=== PATIENT | female | born 1935 | race Caucasian/White ===

== ENCOUNTER 2017-04-23 03:13 | Emergency (ER) | payer MEDICARE, SELFPAY ==
[~2017-04-23] VITALS: Ht 160 cm; Wt 72.1 kg
[~2017-04-23 03:13] MED LIST: ALBIPROI; ALBU90OI; ALBU90OI INH; ALBU90OI6 INH; ALBU90OI61 INH; AZIT250 PO; BUSP10 PO; CARBLEV25 PO; CIPR500; CIPR500 PO; CYCL10 PO; Citrate Of Mag300 ML PO; DEXA2; DEXA4; DIAZ5; DIAZ5 PO; DOCU100; DOCU100 PO; ESOM20; ESOM20 PO; FENT25TP TOP; FENT50TP; FLUD.1; FLUD.1 PO; FLUSAL2505; Fludrocortison0.1 MG PO; GABA100 PO; GLYCAS PR; Golytely Solu4000 ML PO; HYDACE10B PO; HYDACE5 PO; HYDACE5325; HYDR1TAB94 PO; LEVSOD25 PO; LEVSOD75 PO; METO10 PO; METO5A; Miralax17 GM PO; NITR100CA PO; Norco 5-325 Ta1 EACH PO; OXYC10ER; OXYC20ER; OXYC5 PO; OXYGEN; OXYGEN USE; Omeprazole20 M1 PO; PRAM.5 PO; PROC5 PO; Percocet 5-3251 EACH PO; RANI150; RANI150 PO; RISE5 PO; ROPI1 PO; SODBIC650; SPIRIVA; TIOT18; TIOT18 PO; Tamiflu75 MG PO; Zofran8 MG PO; [UNRECOGNIZED DRUG - OTHER]; [UNRECOGNIZED DRUG - REMARK]; [UNRECOGNIZED DRUG - REMARK] PO
[2017-04-23] MEDS ORDERED: Gas-X125 M1 PO (03:42)
[2017-04-23 03:44] LABS: BASOPHILS ABSOLUTE AUTO 0.02 K/mm3 (0.00-0.23); BASOPHILS PERCENT AUTO 0 % (0-2); EOSINOPHILS PERCENT AUTO 2 % (0-6); Hematocrit 38.3 % (33.0-51.0); Hemoglobin 12.7 g/dL (11.5-16.0); IMMATURE GRAN ABSOLUTE AUTO 0.04 K/mm3 (0.00-0.10); IMMATURE GRAN PERCENT AUTO 1 % (0-1); LYMPHOCYTES ABSOLUTE AUTO 0.83 K/mm3 (0.84-5.20); LYMPHOCYTES PERCENT AUTO 18 % (21-46); MONOCYTES ABSOLUTE AUTO 0.55 K/mm3 (0.16-1.47); MONOCYTES PERCENT AUTO 12 % (4-13); Mean Corpuscular HGB 30.7 pg (26.0-34.0); Mean Corpuscular HGB Conc 33.2 g/dL (31.5-36.5); Mean Corpuscular Volume 93 fL (80-100); Mean Platelet Volume 9.3 fL (9.1-12.4); NEUTROPHILS ABSOLUTE AUTO 2.99 K/mm3 (1.96-9.15); NEUTROPHILS PERCENT AUTO 66 % (41-73); Platelet Count 268 K/mm3 (150-400); RDW Coefficient Variation 13.6 % (11.7-14.2); RDW Standard Deviation 46.4 fL (35.1-46.3); Red Blood Cell Count 4.14 M/mm3 (3.80-5.20); White Blood Cell Count 4.53 K/mm3 (4.00-11.30)
[2017-04-23] MEDS ORDERED: PROBIOTIC1 EAC1 PO (03:44)
[2017-04-23 04:05] LABS: Troponin I <0.015 ng/mL (0.000-0.040)
[2017-04-23 04:10] LABS: Alanine Aminotransfer (ALT/SGP 14 U/L (12-78); Albumin, Blood 3.2 g/dL (3.4-5.0); Albumin/Globulin Ratio 0.7 (0.8-1.8); Alk Phos 75 U/L (50-136); Anion Gap 7 mmol/L (6-16); Aspartate Aminotrans (AST/SGOT 12 U/L (12-37); Bilirubin, Total 0.3 mg/dL (0.1-1.0); Blood Urea Nitrogen 10 mg/dL (8-24); CO2, Blood 26 mmol/L (21-32); Calcium, Blood 9.4 mg/dL (8.5-10.1); Chloride, Blood 105 mmol/L (98-108); Creatinine, Blood 0.72 mg/dL (0.40-1.00); Globulin, Blood 4.4 g/dL (2.2-4.0); Glomerular Filtration Rate >60 (60-); Glucose, Blood 110 mg/dL (70-99); Sodium, Blood 138 mmol/L (136-145); Total Protein, Blood 7.6 g/dL (6.4-8.2)
[2017-08-20] MEDS ORDERED: XARELTO20 MG PO (14:26)
[2018-03-16] MEDS ORDERED: [UNRECOGNIZED DRUG - OTHER] PO (10:47)
[2018-03-16] MEDS ORDERED: ARNICA GEL (10:49)
[2018-03-16] MEDS ORDERED: GAVILAX17 GM PO (10:49)
[2018-03-16] MEDS ORDERED: MAGNALIFE TOP (10:50)
[2018-03-16] MEDS ORDERED: Gas-X125 MG (10:51)
[2018-03-16] MEDS ORDERED: [UNRECOGNIZED DRUG - OTHER] (10:51)
[2018-03-16] MEDS ORDERED: LIDO700A20 TOP (13:23)
[2018-03-16] MEDS ORDERED: Voltaren100 GM TOP (13:23)
== END 2017-04-23 04:47 | disposition home or self-care (01) ==
LOC: ER 03:13
PROVIDERS: Emergency Medicine
DX: R07.9 Chest pain, unspecified (principal); J44.9 Chronic obstructive pulmonary disease, unspecified; K21.9 Gastro-esophageal reflux disease without esophagitis; Z88.0 Allergy status to penicillin; Z88.2 Allergy status to sulfonamides; Z88.6 Allergy status to analgesic agent; Z88.8 Allergy status to other drugs, medicaments and biological substances; Z88.1 Allergy status to other antibiotic agents; Z79.899 Other long term (current) drug therapy; Z90.710 Acquired absence of both cervix and uterus; Z90.89 Acquired absence of other organs; Z87.891 Personal history of nicotine dependence; Z85.118 Personal history of other malignant neoplasm of bronchus and lung
CPT/HCPCS: 36415; 71046; 80053; 84484; 85025; 93005; 93010; 99284

== ENCOUNTER 2017-08-21 06:59 | Day surgery (SDC) | payer MEDICARE, SELFPAY ==
[~2017-08-21] VITALS: Ht 160 cm; Wt 75.3 kg
[~2017-08-21 06:59] MED LIST changes: +Gas-X125 M1 PO; +PROBIOTIC1 EAC1 PO; +XARELTO20 MG PO
== END 2017-08-21 23:17 | disposition home or self-care (01) ==
LOC: ORSCMMR 06:59 → ORD 08:00 → ORSCMMR 23:17
PROVIDERS: Internal Medicine Critical Care Medicine
PROC: 0BD48ZX Extraction of Right Upper Lobe Bronchus, Via Natural or Artificial Opening Endoscopic, Diagnostic (ICD-10-PCS; principal; 2017-08-21 08:00)
PROC: 0BDC8ZX Extraction of Right Upper Lung Lobe, Via Natural or Artificial Opening Endoscopic, Diagnostic (ICD-10-PCS; principal; 2017-08-21 08:00)
DX: R91.8 Other nonspecific abnormal finding of lung field (principal); C34.11 Malignant neoplasm of upper lobe, right bronchus or lung; Z85.118 Personal history of other malignant neoplasm of bronchus and lung; J44.9 Chronic obstructive pulmonary disease, unspecified; G25.81 Restless legs syndrome; Z86.718 Personal history of other venous thrombosis and embolism; Z79.01 Long term (current) use of anticoagulants; Z79.899 Other long term (current) drug therapy; Z87.891 Personal history of nicotine dependence
CPT/HCPCS: 71045; 88173; 88305; 88341; 88342; J2250; J3010; J7120

== ENCOUNTER 2018-09-27 17:24 | Observation (INO) | payer MEDICARE, SELFPAY ==
[~2018-09-27] VITALS: Ht 160 cm; Wt 72.1 kg
[~2018-09-27 17:24] MED LIST changes: +ARNICA GEL TOP; +GAVILAX17 GM PO; +Gas-X125 MG; +LIDO700A20 TOP; +MAGNALIFE PO; +ROPI.25 PO; -ROPI1 PO; +Voltaren100 GM TOP; +[UNRECOGNIZED DRUG - OTHER]; +[UNRECOGNIZED DRUG - OTHER] PO
[2018-09-27 18:22] LABS: BASOPHILS ABSOLUTE AUTO 0.02 K/mm3 (0.00-0.23); BASOPHILS PERCENT AUTO 0 % (0-2); EOSINOPHILS ABSOLUTE AUTO 0.03 K/mm3 (0.00-0.68); EOSINOPHILS PERCENT AUTO 0 % (0-6); Hematocrit 35.5 % (33.0-51.0); Hemoglobin 11.6 g/dL (11.5-16.0); IMMATURE GRAN ABSOLUTE AUTO 0.05 K/mm3 (0.00-0.10); IMMATURE GRAN PERCENT AUTO 1 % (0-1); LYMPHOCYTES ABSOLUTE AUTO 1.06 K/mm3 (0.84-5.20); LYMPHOCYTES PERCENT AUTO 10 % (21-46); MONOCYTES ABSOLUTE AUTO 0.98 K/mm3 (0.16-1.47); MONOCYTES PERCENT AUTO 9 % (4-13); Mean Corpuscular HGB 29.2 pg (26.0-34.0); Mean Corpuscular HGB Conc 32.7 g/dL (31.5-36.5); Mean Corpuscular Volume 89 fL (80-100); Mean Platelet Volume 9.1 fL (9.1-12.4); NEUTROPHILS PERCENT AUTO 79 % (41-73); Platelet Count 261 K/mm3 (150-400); RDW Coefficient Variation 13.6 % (11.7-14.2); RDW Standard Deviation 44.6 fL (35.1-46.3); Red Blood Cell Count 3.97 M/mm3 (3.80-5.20); White Blood Cell Count 10.44 K/mm3 (4.00-11.30)
[2018-09-27 18:49] LABS: Alanine Aminotransfer (ALT/SGP 15 U/L (12-78); Albumin, Blood 3.2 g/dL (3.4-5.0); Albumin/Globulin Ratio 0.8 (0.8-1.8); Alk Phos 87 U/L (50-136); Anion Gap 7 mmol/L (6-16); Aspartate Aminotrans (AST/SGOT 10 U/L (12-37); Bilirubin, Total 0.5 mg/dL (0.1-1.0); Blood Urea Nitrogen 9 mg/dL (8-24); Bun/Creatinine Ratio 12.1 (12.0-20.0); CO2, Blood 30 mmol/L (21-32); Chloride, Blood 95 mmol/L (98-108); Creatinine, Blood 0.74 mg/dL (0.40-1.00); Globulin, Blood 4.1 g/dL (2.2-4.0); Glomerular Filtration Rate >60 (60-); Glucose, Blood 120 mg/dL (70-99); Sodium, Blood 132 mmol/L (136-145); Total Protein, Blood 7.3 g/dL (6.4-8.2); Troponin I <0.015 ng/mL (0.000-0.040)
[2018-09-27] MEDS ORDERED: POTA10T PO (21:35)
[2018-09-27] MEDS ORDERED: FURO40 PO (21:35)
[2018-09-27 23:26] LABS: Adenovirus Not Detected (NOT DETECT); Bordetella pertussis Not Detected (NOT DETECT); Chlamydophila pneumoniae Not Detected (NOT DETECT); Coronavirus 229E Detected (NOT DETECT); Coronavirus HKU1 Not Detected (NOT DETECT); Coronavirus NL63 Not Detected (NOT DETECT); Coronavirus OC43 Not Detected (NOT DETECT); Human Metapneumovirus Not Detected (NOT DETECT); Human Rhinovirus/Enterovirus Not Detected (NOT DETECT); Influenza A Not Detected (NOT DETECT); Influenza A/2009-H1 Not Detected (NOT DETECT); Influenza A/H1 Not Detected (NOT DETECT); Influenza A/H3 Not Detected (NOT DETECT); Influenza B Not Detected (NOT DETECT); Mycoplasma pneumoniae Not Detected (NOT DETECT); Parainfluenza Virus 1 Not Detected (NOT DETECT); Parainfluenza Virus 2 Not Detected (NOT DETECT); Parainfluenza Virus 3 Not Detected (NOT DETECT); Parainfluenza Virus 4 Not Detected (NOT DETECT); Respiratory Syncytial Virus Not Detected (NOT DETECT)
[2018-09-28] MEDS ORDERED: Eye Allergy Rel15 ML BOTHEYES (02:40)
[2018-09-28] MEDS ORDERED: DEEP SEA44 ML (02:41)
[2018-09-28 05:17] LABS: BASOPHILS ABSOLUTE AUTO 0.02 K/mm3 (0.00-0.23); BASOPHILS PERCENT AUTO 0 % (0-2); EOSINOPHILS PERCENT AUTO 0 % (0-6); Hematocrit 34.5 % (33.0-51.0); Hemoglobin 10.8 g/dL (11.5-16.0); IMMATURE GRAN ABSOLUTE AUTO 0.09 K/mm3 (0.00-0.10); IMMATURE GRAN PERCENT AUTO 1 % (0-1); LYMPHOCYTES ABSOLUTE AUTO 0.26 K/mm3 (0.84-5.20); LYMPHOCYTES PERCENT AUTO 3 % (21-46); MONOCYTES ABSOLUTE AUTO 0.38 K/mm3 (0.16-1.47); MONOCYTES PERCENT AUTO 4 % (4-13); Mean Corpuscular HGB Conc 31.3 g/dL (31.5-36.5); Mean Platelet Volume 9.6 fL (9.1-12.4); NEUTROPHILS ABSOLUTE AUTO 9.55 K/mm3 (1.96-9.15); NEUTROPHILS PERCENT AUTO 93 % (41-73); Platelet Count 229 K/mm3 (150-400); RDW Coefficient Variation 13.9 % (11.7-14.2); RDW Standard Deviation 47.1 fL (35.1-46.3); Red Blood Cell Count 3.72 M/mm3 (3.80-5.20)
[2018-09-28 05:20] LABS: Mean Corpuscular Volume 93 fL (80-100)
[2018-09-28 05:34] LABS: Anion Gap 8 mmol/L (6-16); Blood Urea Nitrogen 7 mg/dL (8-24); Bun/Creatinine Ratio 11.1 (12.0-20.0); CO2, Blood 26 mmol/L (21-32); Calcium, Blood 8.5 mg/dL (8.5-10.1); Chloride, Blood 103 mmol/L (98-108); Creatinine, Blood 0.63 mg/dL (0.40-1.00); Glomerular Filtration Rate >60 (60-); Glucose, Blood 170 mg/dL (70-99); Potassium, Blood 3.7 mmol/L (3.5-5.5); Sodium, Blood 137 mmol/L (136-145)
[2018-09-28] MEDS ORDERED: Fentanyl1 EAC4 TOP (09:51)
[2018-09-28] MEDS ORDERED: GUAI600T33 PO (14:08)
[2018-09-28] MEDS ORDERED: ONDA4ODT MM (14:08)
[2018-09-28] MEDS ORDERED: PRED20 PO (14:09)
[2018-09-28] MEDS ORDERED: Florastor250 MG PO (14:09)
[2018-09-28] MEDS ORDERED: AZIT500 PO (14:09)
--- NOTE | 2018-09-28 15:12 | NUR ---
DISCHARGE PT HAS DONE WELL TODAY. PT HAS BEEN USING BASELINE O2 SINCE BEGINNING OF MY SHIFT. AMBULATING BUT DOES GET SHORT OF BREATH. RECOGNISES THIS AND DISCUSSED SHORTER WALKS AND SLOWLY BUILDING UP STRENGTH. MEDS FAXED TO PHARMACY OF CHOICE, SAVE ON IN [place].
== END 2018-09-28 15:03 | disposition home or self-care (01) ==
LOC: ER 17:24 → MEDS 17:25 → ERHOLD 17:25 → MEDS 17:26 → ER 23:00 → ERHOLD 23:00 → MEDS 23:00 → ERHOLD 09-28 02:10 → MEDS 09-28 02:10
PROVIDERS: Emergency Medicine; Nurse Practitioner Acute Care; ADMIT Internal Medicine
DX: J44.1 Chronic obstructive pulmonary disease with (acute) exacerbation (principal); J96.21 Acute and chronic respiratory failure with hypoxia; R07.9 Chest pain, unspecified; I95.9 Hypotension, unspecified; I50.9 Heart failure, unspecified; E87.6 Hypokalemia; G89.4 Chronic pain syndrome; E03.9 Hypothyroidism, unspecified; K21.9 Gastro-esophageal reflux disease without esophagitis; Z99.81 Dependence on supplemental oxygen; Z87.891 Personal history of nicotine dependence; Z88.2 Allergy status to sulfonamides; Z88.6 Allergy status to analgesic agent; Z88.0 Allergy status to penicillin; Z88.8 Allergy status to other drugs, medicaments and biological substances; Z79.899 Other long term (current) drug therapy
CPT/HCPCS: 36415; 71046; 71260; 80048; 80053; 83605; 83880; 84145; 84443; 84484; 85025; 87040; 87486; 87581; 87633; 87798; 93005; 93010; 94640; 94644; 94645; 94760; 96360-59; 96361; 96372-59; 99285-25; A9270; G0378; J0696; J1650; J2405; J7030; J7512; Q0164; Q9967

== ENCOUNTER → 2018-12-12 | Outpatient (CLI) | payer MEDICARE ==
[~2018-12-12] MED LIST changes: +AZIT500 PO; +DEEP SEA44 ML; +Eye Allergy Rel15 ML BOTHEYES; +FURO40 PO; +Fentanyl1 EAC4 TOP; +Florastor250 MG PO; +GUAI600T33 PO; +ONDA4ODT MM; +POTA10T PO; +PRED20 PO; +Prednisone20 MG PO; +Ventolin/Prove6.7 GM INH; +Zithromax250 MG PO
[2018-12-12 11:47] LABS: BASOPHILS ABSOLUTE AUTO 0.04 K/mm3 (0.00-0.23); BASOPHILS PERCENT AUTO 1 % (0-2); EOSINOPHILS ABSOLUTE AUTO 0.07 K/mm3 (0.00-0.68); EOSINOPHILS PERCENT AUTO 1 % (0-6); Hematocrit 36.9 % (33.0-51.0); IMMATURE GRAN ABSOLUTE AUTO 0.04 K/mm3 (0.00-0.10); IMMATURE GRAN PERCENT AUTO 1 % (0-1); LYMPHOCYTES PERCENT AUTO 11 % (21-46); MONOCYTES ABSOLUTE AUTO 0.57 K/mm3 (0.16-1.47); MONOCYTES PERCENT AUTO 8 % (4-13); Mean Corpuscular HGB 28.5 pg (26.0-34.0); Mean Corpuscular HGB Conc 32.5 g/dL (31.5-36.5); Mean Corpuscular Volume 88 fL (80-100); Mean Platelet Volume 9.1 fL (9.1-12.4); NEUTROPHILS ABSOLUTE AUTO 5.52 K/mm3 (1.96-9.15); NEUTROPHILS PERCENT AUTO 78 % (41-73); Platelet Count 371 K/mm3 (150-400); RDW Coefficient Variation 15.2 % (11.7-14.2); RDW Standard Deviation 48.9 fL (35.1-46.3); Red Blood Cell Count 4.21 M/mm3 (3.80-5.20); White Blood Cell Count 7.04 K/mm3 (4.00-11.30)
[2018-12-12 11:59] LABS: Alanine Aminotransfer (ALT/SGP 16 U/L (12-78); Albumin, Blood 3.6 g/dL (3.4-5.0); Albumin/Globulin Ratio 0.9 (0.8-1.8); Alk Phos 84 U/L (40-126); Anion Gap 10 mmol/L (6-16); Aspartate Aminotrans (AST/SGOT 18 U/L (12-37); Bilirubin, Total 0.4 mg/dL (0.1-1.0); Blood Urea Nitrogen 10 mg/dL (8-24); Bun/Creatinine Ratio 12.3 (12.0-20.0); CO2, Blood 29 mmol/L (21-32); Calcium, Blood 9.6 mg/dL (8.5-10.1); Chloride, Blood 98 mmol/L (98-108); Creatinine, Blood 0.81 mg/dL (0.40-1.00); Globulin, Blood 4.2 g/dL (2.2-4.0); Glomerular Filtration Rate >60 (60-); Glucose, Blood 104 mg/dL (70-99); Potassium, Blood 3.3 mmol/L (3.5-5.5); Sodium, Blood 137 mmol/L (136-145); Total Protein, Blood 7.8 g/dL (6.4-8.2)
[2018-12-12 12:00] LABS: Troponin I <0.017 ng/mL (0.000-0.040)
== END | disposition home or self-care (01) ==
LOC: LAB SHORT 11:42 → LAB EV 11:42
PROVIDERS: Physician Assistant
DX: R07.9 Chest pain, unspecified (principal); R06.09 Other forms of dyspnea; E03.9 Hypothyroidism, unspecified
CPT/HCPCS: 80053; 83880; 84443; 84484; 85025

== ENCOUNTER 2019-01-21 11:55 | Emergency (ER) | payer MEDICARE ==
[~2019-01-21] VITALS: Ht 160 cm; Wt 68.5 kg
[~2019-01-21 11:55] MED LIST changes: -Prednisone20 MG PO; -Ventolin/Prove6.7 GM INH; -Zithromax250 MG PO
[2019-01-21] MEDS ORDERED: CYCL10 PO (12:25)
[2019-01-21] MEDS ORDERED: Ventolin/Prove6.7 GM INH (12:28)
[2019-01-21 12:34] LABS: BASOPHILS ABSOLUTE AUTO 0.05 K/mm3 (0.00-0.23); BASOPHILS PERCENT AUTO 1 % (0-2); EOSINOPHILS ABSOLUTE AUTO 0.45 K/mm3 (0.00-0.68); EOSINOPHILS PERCENT AUTO 7 % (0-6); Hematocrit 33.2 % (33.0-51.0); Hemoglobin 10.5 g/dL (11.5-16.0); IMMATURE GRAN ABSOLUTE AUTO 0.02 K/mm3 (0.00-0.10); IMMATURE GRAN PERCENT AUTO 0 % (0-1); LYMPHOCYTES ABSOLUTE AUTO 1.11 K/mm3 (0.84-5.20); LYMPHOCYTES PERCENT AUTO 16 % (21-46); MONOCYTES ABSOLUTE AUTO 0.67 K/mm3 (0.16-1.47); MONOCYTES PERCENT AUTO 10 % (4-13); Mean Corpuscular HGB 28.5 pg (26.0-34.0); Mean Corpuscular HGB Conc 31.6 g/dL (31.5-36.5); Mean Corpuscular Volume 90 fL (80-100); Mean Platelet Volume 9.8 fL (9.1-12.4); NEUTROPHILS ABSOLUTE AUTO 4.67 K/mm3 (1.96-9.15); NEUTROPHILS PERCENT AUTO 67 % (41-73); Platelet Count 306 K/mm3 (150-400); RDW Coefficient Variation 14.5 % (11.7-14.2); RDW Standard Deviation 47.4 fL (35.1-46.3); Red Blood Cell Count 3.68 M/mm3 (3.80-5.20); White Blood Cell Count 6.97 K/mm3 (4.00-11.30)
[2019-01-21 12:53] LABS: Alanine Aminotransfer (ALT/SGP 15 U/L (12-78); Albumin, Blood 3.4 g/dL (3.4-5.0); Albumin/Globulin Ratio 0.9 (0.8-1.8); Alk Phos 76 U/L (50-136); Anion Gap 6 mmol/L (6-16); Aspartate Aminotrans (AST/SGOT 14 U/L (12-37); Bilirubin, Total 0.4 mg/dL (0.1-1.0); Blood Urea Nitrogen 9 mg/dL (8-24); Bun/Creatinine Ratio 13.1 (12.0-20.0); CO2, Blood 29 mmol/L (21-32); Calcium, Blood 9.4 mg/dL (8.5-10.1); Chloride, Blood 103 mmol/L (98-108); Creatinine, Blood 0.69 mg/dL (0.40-1.00); Globulin, Blood 3.7 g/dL (2.2-4.0); Glomerular Filtration Rate >60 (60-); Glucose, Blood 106 mg/dL (70-99); Potassium, Blood 3.4 mmol/L (3.5-5.5); Sodium, Blood 138 mmol/L (136-145); Total Protein, Blood 7.1 g/dL (6.4-8.2); Troponin I <0.015 ng/mL (0.000-0.040)
[2019-01-21] MEDS ORDERED: Prednisone20 MG PO (14:23)
[2019-01-21] MEDS ORDERED: Zithromax250 MG PO (14:23)
== END 2019-01-21 15:35 | disposition home or self-care (01) ==
LOC: ER 11:55
PROVIDERS: Emergency Medicine
DX: J44.0 Chronic obstructive pulmonary disease with (acute) lower respiratory infection (principal); J20.9 Acute bronchitis, unspecified; J44.1 Chronic obstructive pulmonary disease with (acute) exacerbation; E87.6 Hypokalemia; K21.9 Gastro-esophageal reflux disease without esophagitis; E03.9 Hypothyroidism, unspecified; G25.81 Restless legs syndrome; M19.90 Unspecified osteoarthritis, unspecified site; I50.9 Heart failure, unspecified; G89.4 Chronic pain syndrome; F11.20 Opioid dependence, uncomplicated; Z88.0 Allergy status to penicillin; Z88.2 Allergy status to sulfonamides; Z88.6 Allergy status to analgesic agent; Z88.8 Allergy status to other drugs, medicaments and biological substances; Z79.51 Long term (current) use of inhaled steroids; Z79.899 Other long term (current) drug therapy
CPT/HCPCS: 71046; 80053; 83880; 84484; 85025; 93005; 93010; 96374; 99284-25; J2930

== ENCOUNTER 2019-03-09 16:39 | Emergency (ER) | payer MEDICARE, OTHER ==
[~2019-03-09] VITALS: Ht 157.5 cm; Wt 70.8 kg
[~2019-03-09 16:39] MED LIST changes: +Fentanyl1 EACH TOP; +Prednisone20 MG PO; +TIOT18 INH; +Ventolin/Prove6.7 GM INH; +Zithromax250 MG PO
[2019-03-09 17:10] LABS: BASOPHILS ABSOLUTE AUTO 0.06 K/mm3 (0.00-0.23); BASOPHILS PERCENT AUTO 1 % (0-2); EOSINOPHILS PERCENT AUTO 2 % (0-6); Hematocrit 37.7 % (33.0-51.0); Hemoglobin 11.6 g/dL (11.5-16.0); IMMATURE GRAN ABSOLUTE AUTO 0.26 K/mm3 (0.00-0.10); IMMATURE GRAN PERCENT AUTO 3 % (0-1); LYMPHOCYTES PERCENT AUTO 14 % (21-46); MONOCYTES ABSOLUTE AUTO 0.95 K/mm3 (0.16-1.47); MONOCYTES PERCENT AUTO 10 % (4-13); Mean Corpuscular HGB 27.8 pg (26.0-34.0); Mean Corpuscular HGB Conc 30.8 g/dL (31.5-36.5); Mean Corpuscular Volume 90 fL (80-100); NEUTROPHILS ABSOLUTE AUTO 6.72 K/mm3 (1.96-9.15); NEUTROPHILS PERCENT AUTO 71 % (41-73); Platelet Count 402 K/mm3 (150-400); RDW Coefficient Variation 16.1 % (11.7-14.2); RDW Standard Deviation 52.8 fL (35.1-46.3); Red Blood Cell Count 4.18 M/mm3 (3.80-5.20); White Blood Cell Count 9.49 K/mm3 (4.00-11.30)
[2019-03-09 17:36] LABS: Alanine Aminotransfer (ALT/SGP 19 U/L (12-78); Albumin, Blood 3.5 g/dL (3.4-5.0); Albumin/Globulin Ratio 0.9 (0.8-1.8); Alk Phos 85 U/L (50-136); Anion Gap 11 mmol/L (6-16); Aspartate Aminotrans (AST/SGOT 12 U/L (12-37); Bilirubin, Total 0.3 mg/dL (0.1-1.0); Blood Urea Nitrogen 14 mg/dL (8-24); Bun/Creatinine Ratio 20.3 (12.0-20.0); CO2, Blood 25 mmol/L (21-32); Calcium, Blood 9.4 mg/dL (8.5-10.1); Chloride, Blood 98 mmol/L (98-108); Creatinine, Blood 0.69 mg/dL (0.40-1.00); Globulin, Blood 3.9 g/dL (2.2-4.0); Glomerular Filtration Rate >60 (60-); Glucose, Blood 133 mg/dL (70-99); Sodium, Blood 134 mmol/L (136-145); Total Protein, Blood 7.4 g/dL (6.4-8.2); Troponin I <0.015 ng/mL (0.000-0.040)
[2019-03-09 17:49] LABS: International Normalized Ratio 1.03; Prothrombin Time Results 10.9 Sec (9.7-11.5)
== END 2019-03-09 22:00 | disposition home or self-care (01) ==
LOC: ER 16:39
PROVIDERS: Physician Assistant
DX: R07.9 Chest pain, unspecified (principal); E87.6 Hypokalemia; R79.1 Abnormal coagulation profile; M79.89 Other specified soft tissue disorders; K21.9 Gastro-esophageal reflux disease without esophagitis; J44.9 Chronic obstructive pulmonary disease, unspecified; E03.9 Hypothyroidism, unspecified; Z87.891 Personal history of nicotine dependence; Z85.118 Personal history of other malignant neoplasm of bronchus and lung; Z88.2 Allergy status to sulfonamides; Z88.6 Allergy status to analgesic agent; Z88.0 Allergy status to penicillin; Z88.8 Allergy status to other drugs, medicaments and biological substances; Z79.899 Other long term (current) drug therapy
CPT/HCPCS: 36415; 71046; 71260; 80053; 83690; 83735; 83880; 84484; 85025; 85379; 85610; 93005; 93010; 93971; 99285-25; Q9967

== ENCOUNTER 2019-03-21 11:36 | Observation (INO) | payer MEDICARE, OTHER ==
[~2019-03-21] VITALS: Ht 157.5 cm; Wt 71.7 kg
[2019-03-21 12:20] LABS: BASOPHILS ABSOLUTE AUTO 0.05 K/mm3 (0.00-0.23); BASOPHILS PERCENT AUTO 1 % (0-2); EOSINOPHILS ABSOLUTE AUTO 0.72 K/mm3 (0.00-0.68); EOSINOPHILS PERCENT AUTO 9 % (0-6); Hemoglobin 10.9 g/dL (11.5-16.0); IMMATURE GRAN ABSOLUTE AUTO 0.03 K/mm3 (0.00-0.10); IMMATURE GRAN PERCENT AUTO 0 % (0-1); LYMPHOCYTES PERCENT AUTO 10 % (21-46); MONOCYTES ABSOLUTE AUTO 0.69 K/mm3 (0.16-1.47); MONOCYTES PERCENT AUTO 8 % (4-13); Mean Corpuscular HGB 27.4 pg (26.0-34.0); Mean Corpuscular HGB Conc 31.1 g/dL (31.5-36.5); Mean Corpuscular Volume 88 fL (80-100); Mean Platelet Volume 9.9 fL (9.1-12.4); NEUTROPHILS ABSOLUTE AUTO 5.97 K/mm3 (1.96-9.15); NEUTROPHILS PERCENT AUTO 72 % (41-73); Platelet Count 288 K/mm3 (150-400); RDW Coefficient Variation 16.8 % (11.7-14.2); RDW Standard Deviation 53.1 fL (35.1-46.3); Red Blood Cell Count 3.98 M/mm3 (3.80-5.20); White Blood Cell Count 8.26 K/mm3 (4.00-11.30)
[2019-03-21 12:34] LABS: Alanine Aminotransfer (ALT/SGP 16 U/L (12-78); Albumin, Blood 3.7 g/dL (3.4-5.0); Albumin/Globulin Ratio 0.9 (0.8-1.8); Alk Phos 84 U/L (50-136); Anion Gap 8 mmol/L (6-16); Aspartate Aminotrans (AST/SGOT 19 U/L (12-37); Bilirubin, Total 0.5 mg/dL (0.1-1.0); Blood Urea Nitrogen 8 mg/dL (8-24); Bun/Creatinine Ratio 11.6 (12.0-20.0); CO2, Blood 30 mmol/L (21-32); Calcium, Blood 9.9 mg/dL (8.5-10.1); Chloride, Blood 99 mmol/L (98-108); Creatinine, Blood 0.69 mg/dL (0.40-1.00); Globulin, Blood 4.1 g/dL (2.2-4.0); Glomerular Filtration Rate >60 (60-); Glucose, Blood 110 mg/dL (70-99); Potassium, Blood 2.9 mmol/L (3.5-5.5); Sodium, Blood 137 mmol/L (136-145); Total Protein, Blood 7.8 g/dL (6.4-8.2)
[2019-03-21] MEDS ORDERED: GABA100 PO (14:07)
[2019-03-21] MEDS ORDERED: TRAZ50 PO (14:08)
[2019-03-21] MEDS ORDERED: ROPINIROLE HCL1 MG PO (14:09)
[2019-03-21] MEDS ORDERED: HYDROCODONE-AC1 EAC1 PO (14:10)
[2019-03-21] MEDS ORDERED: POTA10T PO (14:10)
[2019-03-21] MEDS ORDERED: FUROSEMIDE40 MG PO (14:11)
[2019-03-21] MEDS ORDERED: TRIFLURIDINE RIGHTEYE (17:11)
--- NOTE | 2019-03-21 18:09 | NUR ---
TRANSFER NOTE RECEIVED HANDOFF REPORT FROM ER NURSE TOPHER. PT TRANSFERED TO MED FLOOR, ORIENTED TO ROOM. DAUGHTER ARRIVED WITH PT. CALL BUTTON WITHIN REACH
--- NOTE | 2019-03-22 04:48 | NUR ---
SHIFT SUMMARY- PT. A&OX3, PLEASANT AND COOPERATIVE WITH CARE. ON 2L NC. PT. WITH HACKING COUGH THAT IS PRODUCTIVE. BREATHING TX'S GIVEN SEVERAL TIMES LAST NIGHT, PT. TOLERATED WELL AND IT APPEARED TO HAVE HELPED WITH THE COUGH SPASMS. PT. SLEPT ON/OFF DURING THE NIGHT. NO APPARENT DISTRESS NOTED. C/O PAIN TO LT SHOULDER AND BACK, MEDICATED PER EMAR, PT. STATED HAD GOOD RELIEF. CALL LIGHT WITHIN REACH AND SIDE RAILS UP X2. WILL CONT TO MONITOR.
[2019-03-22 05:45] LABS: BASOPHILS ABSOLUTE AUTO 0.01 K/mm3 (0.00-0.23); BASOPHILS PERCENT AUTO 0 % (0-2); EOSINOPHILS PERCENT AUTO 0 % (0-6); Hematocrit 32.2 % (33.0-51.0); Hemoglobin 9.9 g/dL (11.5-16.0); IMMATURE GRAN ABSOLUTE AUTO 0.02 K/mm3 (0.00-0.10); IMMATURE GRAN PERCENT AUTO 0 % (0-1); LYMPHOCYTES ABSOLUTE AUTO 0.16 K/mm3 (0.84-5.20); LYMPHOCYTES PERCENT AUTO 3 % (21-46); MONOCYTES ABSOLUTE AUTO 0.13 K/mm3 (0.16-1.47); MONOCYTES PERCENT AUTO 3 % (4-13); Mean Corpuscular HGB 26.9 pg (26.0-34.0); Mean Corpuscular HGB Conc 30.7 g/dL (31.5-36.5); Mean Corpuscular Volume 88 fL (80-100); NEUTROPHILS ABSOLUTE AUTO 4.79 K/mm3 (1.96-9.15); NEUTROPHILS PERCENT AUTO 94 % (41-73); Platelet Count 275 K/mm3 (150-400); RDW Coefficient Variation 17.1 % (11.7-14.2); RDW Standard Deviation 53.7 fL (35.1-46.3); Red Blood Cell Count 3.68 M/mm3 (3.80-5.20); White Blood Cell Count 5.11 K/mm3 (4.00-11.30)
[2019-03-22 05:59] LABS: Anion Gap 10 mmol/L (6-16); Blood Urea Nitrogen 11 mg/dL (8-24); Bun/Creatinine Ratio 14.9 (12.0-20.0); CO2, Blood 26 mmol/L (21-32); Calcium, Blood 9.5 mg/dL (8.5-10.1); Chloride, Blood 101 mmol/L (98-108); Creatinine, Blood 0.74 mg/dL (0.40-1.00); Glomerular Filtration Rate >60 (60-); Glucose, Blood 214 mg/dL (70-99); Magnesium, Blood 2.1 mg/dL (1.6-2.4); Potassium, Blood 3.3 mmol/L (3.5-5.5); Sodium, Blood 137 mmol/L (136-145)
[2019-03-22] MEDS ORDERED: Fentanyl1 EAC4 TOP (10:35)
[2019-03-22] MEDS ORDERED: ALBU3IS NEB (10:38)
[2019-03-22] MEDS ORDERED: PRED20 PO (15:23)
--- NOTE | 2019-03-22 16:00 | NUR ---
REVIEW ALL D'C. REVIEW MEDS AND AWARE TO BATTALION FIRE CHIEF AT [facility]. EUSEBIA BROUGHT IN OXYGEN TANK AND AWARE WILL EITHER BRING OVER OXYGEN TO HOME TODAY OR TOMORROW. HAS OXYGEN AT HOME AT THIS TIME FROM ANOTHER PROVIDER. 2 APPTS MADE ONE FOR TOMORROW AND ONE FOR 03/25 AND AWARE NEEDS TO KEEP THOSE APPTS. AWARE CAN GO BACK TO [facility] IF NEEDED. ANSWER ALL QUESTIONS. IN CHAIR WALKER TO POV.
== END 2019-03-22 16:13 | disposition home or self-care (01) ==
LOC: ER 11:36 → MEDS 11:37
PROVIDERS: Emergency Medicine; ADMIT Internal Medicine
DX: J44.1 Chronic obstructive pulmonary disease with (acute) exacerbation (principal); J96.21 Acute and chronic respiratory failure with hypoxia; R30.0 Dysuria; E87.6 Hypokalemia; I50.9 Heart failure, unspecified; E03.9 Hypothyroidism, unspecified; G25.81 Restless legs syndrome; K21.9 Gastro-esophageal reflux disease without esophagitis; I73.9 Peripheral vascular disease, unspecified; F41.0 Panic disorder [episodic paroxysmal anxiety]; G89.29 Other chronic pain; Z90.710 Acquired absence of both cervix and uterus; Z85.118 Personal history of other malignant neoplasm of bronchus and lung; Z87.891 Personal history of nicotine dependence; Z66 Do not resuscitate; Z88.0 Allergy status to penicillin; Z88.2 Allergy status to sulfonamides; Z88.6 Allergy status to analgesic agent; Z88.8 Allergy status to other drugs, medicaments and biological substances; Z79.899 Other long term (current) drug therapy
CPT/HCPCS: 36415; 71046; 80048; 80053; 83735; 83880; 85025; 93005; 93010; 94640; 94644; 94760; 96372; 96374; 96375; 96376; 97162; 97165; 97530; 97535; 99285-25; A9270; A9270-GY; G0378; J1650; J2405; J2920; J2930

== ENCOUNTER 2019-04-13 13:50 | Emergency (ER) | payer MEDICARE, OTHER ==
[~2019-04-13] VITALS: Ht 157.5 cm; Wt 71.2 kg
[~2019-04-13 13:50] MED LIST changes: +ALBU3IS NEB; +FUROSEMIDE40 MG PO; +HYDROCODONE-AC1 EAC1 PO; +ROPINIROLE HCL1 MG PO; +TRAZ50 PO; +TRIFLURIDINE RIGHTEYE
[2019-04-13 15:39] LABS: BASOPHILS ABSOLUTE AUTO 0.01 K/mm3 (0.00-0.23); BASOPHILS PERCENT AUTO 0 % (0-2); EOSINOPHILS ABSOLUTE AUTO 0.12 K/mm3 (0.00-0.68); EOSINOPHILS PERCENT AUTO 2 % (0-6); Hematocrit 30.8 % (33.0-51.0); Hemoglobin 9.5 g/dL (11.5-16.0); IMMATURE GRAN ABSOLUTE AUTO 0.05 K/mm3 (0.00-0.10); IMMATURE GRAN PERCENT AUTO 1 % (0-1); LYMPHOCYTES ABSOLUTE AUTO 0.49 K/mm3 (0.84-5.20); LYMPHOCYTES PERCENT AUTO 9 % (21-46); MONOCYTES ABSOLUTE AUTO 0.64 K/mm3 (0.16-1.47); MONOCYTES PERCENT AUTO 11 % (4-13); Mean Corpuscular HGB 27.4 pg (26.0-34.0); Mean Corpuscular HGB Conc 30.8 g/dL (31.5-36.5); Mean Corpuscular Volume 89 fL (80-100); Mean Platelet Volume 9.3 fL (9.1-12.4); NEUTROPHILS ABSOLUTE AUTO 4.42 K/mm3 (1.96-9.15); NEUTROPHILS PERCENT AUTO 77 % (41-73); Platelet Count 273 K/mm3 (150-400); RDW Coefficient Variation 17.5 % (11.7-14.2); RDW Standard Deviation 57.1 fL (35.1-46.3); Red Blood Cell Count 3.47 M/mm3 (3.80-5.20); White Blood Cell Count 5.73 K/mm3 (4.00-11.30)
[2019-04-13 16:00] LABS: Alanine Aminotransfer (ALT/SGP 19 U/L (12-78); Albumin, Blood 2.6 g/dL (3.4-5.0); Albumin/Globulin Ratio 0.6 (0.8-1.8); Alk Phos 95 U/L (50-136); Anion Gap 6 mmol/L (6-16); Aspartate Aminotrans (AST/SGOT 21 U/L (12-37); Bilirubin, Total 0.5 mg/dL (0.1-1.0); Blood Urea Nitrogen 10 mg/dL (8-24); Bun/Creatinine Ratio 16.1 (12.0-20.0); CO2, Blood 27 mmol/L (21-32); Calcium, Blood 8.5 mg/dL (8.5-10.1); Chloride, Blood 98 mmol/L (98-108); Creatinine, Blood 0.62 mg/dL (0.40-1.00); Globulin, Blood 4.3 g/dL (2.2-4.0); Glomerular Filtration Rate >60 (60-); Glucose, Blood 121 mg/dL (70-99); Potassium, Blood 3.5 mmol/L (3.5-5.5); Sodium, Blood 131 mmol/L (136-145); Total Protein, Blood 6.9 g/dL (6.4-8.2); Troponin I <0.015 ng/mL (0.000-0.040)
[2019-04-13] MEDS ORDERED: Cipro500 MG PO ×2 (18:15→19:32)
[2019-04-13] MEDS ORDERED: PRED10 PO ×2 (18:15→19:32)
== END 2019-04-13 18:38 | disposition home or self-care (01) ==
LOC: ER 13:50
PROVIDERS: Physician Assistant
DX: J44.1 Chronic obstructive pulmonary disease with (acute) exacerbation (principal); K59.00 Constipation, unspecified; I50.9 Heart failure, unspecified; E03.9 Hypothyroidism, unspecified; K21.9 Gastro-esophageal reflux disease without esophagitis; Z79.899 Other long term (current) drug therapy; Z79.51 Long term (current) use of inhaled steroids; Z88.2 Allergy status to sulfonamides; Z88.6 Allergy status to analgesic agent; Z88.0 Allergy status to penicillin; Z88.8 Allergy status to other drugs, medicaments and biological substances; Z87.891 Personal history of nicotine dependence
CPT/HCPCS: 36415; 71046; 74177; 80053; 83605; 83880; 84484; 85025; 87040; 93005; 93010; 94640; 96374; 99285-25; J2930; Q9967

== ENCOUNTER 2019-05-27 07:54 | Day surgery (SDC) | payer MEDICARE, OTHER ==
[~2019-05-27] VITALS: Ht 165.1 cm; Wt 71.0 kg
[~2019-05-27 07:54] MED LIST changes: +Cipro500 MG PO; +PRED10 PO
[2019-05-27] MEDS ORDERED: CLOP75 (13:18)
--- NOTE | 2019-05-27 16:09 | NUR ---
PT SITTING UP, DRESSED, IV DC'D INTACT AND EATING SANDWICH NOW. R/L FEM GROIN SITES STABLE, SOFT, PALPABLE PEDAL PULSES, PT WILL BE DC'D BY WC WITH FAMILY DRIVING PT HOME
--- NOTE | 2019-05-27 16:52 | NUR ---
PT DC'D BY BY THIS RN, DAUGHTER DRIVING PT HOME
== END 2019-05-27 23:13 | disposition home or self-care (01) ==
LOC: MHTC 07:54
DX: I70.213 Atherosclerosis of native arteries of extremities with intermittent claudication, bilateral legs (principal); I50.9 Heart failure, unspecified; J44.9 Chronic obstructive pulmonary disease, unspecified; E03.9 Hypothyroidism, unspecified; Z87.891 Personal history of nicotine dependence; Z99.81 Dependence on supplemental oxygen; Z88.0 Allergy status to penicillin; Z88.2 Allergy status to sulfonamides; Z88.8 Allergy status to other drugs, medicaments and biological substances; Z79.899 Other long term (current) drug therapy
CPT/HCPCS: 37221; 37246; 75625; 75716; 99152; 99153; C1760; C1769; C1874; C1887; C1894; J1200; J1644; J2060; J2250; J3010; J7030; Q9967

== ENCOUNTER → 2019-06-04 | Outpatient (CLI) | payer MEDICARE ==
[~2019-06-04] MED LIST changes: +CLOP75
[2019-06-04 16:04] LABS: BASOPHILS ABSOLUTE AUTO 0.05 K/mm3 (0.00-0.23); BASOPHILS PERCENT AUTO 1 % (0-2); EOSINOPHILS ABSOLUTE AUTO 0.28 K/mm3 (0.00-0.68); EOSINOPHILS PERCENT AUTO 5 % (0-6); Hemoglobin 9.9 g/dL (11.5-16.0); IMMATURE GRAN ABSOLUTE AUTO 0.02 K/mm3 (0.00-0.10); IMMATURE GRAN PERCENT AUTO 0 % (0-1); LYMPHOCYTES ABSOLUTE AUTO 0.82 K/mm3 (0.84-5.20); LYMPHOCYTES PERCENT AUTO 15 % (21-46); MONOCYTES ABSOLUTE AUTO 0.51 K/mm3 (0.16-1.47); MONOCYTES PERCENT AUTO 9 % (4-13); Mean Corpuscular HGB Conc 30.9 g/dL (31.5-36.5); Mean Platelet Volume 9.2 fL (9.1-12.4); NEUTROPHILS ABSOLUTE AUTO 3.79 K/mm3 (1.96-9.15); NEUTROPHILS PERCENT AUTO 69 % (41-73); Platelet Count 436 K/mm3 (150-400); RDW Coefficient Variation 16.7 % (11.7-14.2); RDW Standard Deviation 50.9 fL (35.1-46.3); Red Blood Cell Count 3.81 M/mm3 (3.80-5.20); White Blood Cell Count 5.47 K/mm3 (4.00-11.30)
[2019-06-04 16:05] LABS: Mean Corpuscular Volume 84 fL (80-100)
[2019-06-04 16:17] LABS: Anion Gap 10 mmol/L (6-16); Blood Urea Nitrogen 8 mg/dL (8-24); Bun/Creatinine Ratio 9.2 (12.0-20.0); CO2, Blood 29 mmol/L (21-32); Calcium, Blood 9.9 mg/dL (8.5-10.1); Chloride, Blood 98 mmol/L (98-108); Creatinine, Blood 0.87 mg/dL (0.40-1.00); Glomerular Filtration Rate >60 (60-); Glucose, Blood 113 mg/dL (70-99); Potassium, Blood 3.3 mmol/L (3.5-5.5); Sodium, Blood 137 mmol/L (136-145); Troponin I <0.017 ng/mL (0.000-0.040)
== END ==
LOC: LAB SHORT 15:58
PROVIDERS: Physician Assistant Surgical
DX: R06.02 Shortness of breath (principal)
CPT/HCPCS: 80048; 83880; 84484; 85025

== ENCOUNTER 2019-08-18 20:01 | Emergency (ER) | payer MEDICARE ==
[~2019-08-18] VITALS: Ht 157.5 cm; Wt 65.8 kg
== END 2019-08-18 22:11 | disposition home or self-care (01) ==
LOC: ER 20:01
DX: S20.211A Contusion of right front wall of thorax, initial encounter (principal); K21.9 Gastro-esophageal reflux disease without esophagitis; J44.9 Chronic obstructive pulmonary disease, unspecified; M81.0 Age-related osteoporosis without current pathological fracture; Z87.891 Personal history of nicotine dependence; Z88.0 Allergy status to penicillin; Z88.2 Allergy status to sulfonamides; Z88.6 Allergy status to analgesic agent; Z88.8 Allergy status to other drugs, medicaments and biological substances; Z79.899 Other long term (current) drug therapy; W18.30XA Fall on same level, unspecified, initial encounter
CPT/HCPCS: 70450; 71045; 72125; 99284-25

== ENCOUNTER 2022-07-01 15:18 | Inpatient (IN) | payer OTHER ==
[~2022-07-01] VITALS: Ht 157.5 cm; Wt 68.7 kg
[~2022-07-01 15:18] MED LIST changes: +ALBU2.5V5 INH; +ASPIR 8181 MG PO; +BREO ELLIPTA 21 EAC1 INH; -CLOP75; +CLOP75 PO; +Cyclobenzaprine5 MG PO; +EUTHYROX88 MCG PO; +FENTANYL1 EA10 TOP; +FENTANYL1 EA12 TOP; +FURO20 PO; +HYDROCODONE-AC1 EA10 PO; +OMEP20ER PO; +ROPI1 PO; +TRELEGY ELLIPT1 EACH INH
[2022-07-01 16:53] LABS: Hematocrit 32.2 % (33.0-51.0); Hemoglobin 10.8 g/dL (11.5-16.0); Mean Corpuscular HGB 33.5 pg (26.0-34.0); Mean Corpuscular HGB Conc 33.5 g/dL (31.5-36.5); Mean Corpuscular Volume 100 fL (80-100); RDW Standard Deviation 50.4 fL (35.1-46.3); Red Blood Cell Count 3.22 M/mm3 (3.80-5.20); White Blood Cell Count 5.49 K/mm3 (4.00-11.30)
[2022-07-01 17:22] LABS: BASOPHILS PERCENT MAN 0 % (0-2); EOSINOPHILS ABSOLUTE MAN 0.16 K/mm3 (0.00-0.68); EOSINOPHILS PERCENT MAN 3 % (0-6); LYMPHOCYTES ABSOLUTE MAN 0.27 K/mm3 (0.84-5.20); LYMPHOCYTES PERCENT MAN 5 % (21-46); MONOCYTES PERCENT MAN 0 % (4-13); NEUTROPHILS ABSOLUTE MAN 5.05 K/mm3 (1.96-9.15); SEG NEUTROPHILS PERCENT MAN 92 % (41-73); TOTAL CELLS COUNTED 100
[2022-07-01 17:24] LABS: Mean Platelet Volume 11.9 fL (9.1-12.4); Platelet Count 67 K/mm3 (150-400)
[2022-07-01 17:57] LABS: Albumin/Globulin Ratio 0.7 (0.8-1.8); Bilirubin, Total 1.2 mg/dL (0.1-1.0); Bun/Creatinine Ratio 17.1 (12.0-20.0); Creatinine, Blood 0.76 mg/dL (0.40-1.00); Globulin, Blood 4.1 g/dL (2.2-4.0); Potassium, Blood 3.9 mmol/L (3.5-5.5); Total Protein, Blood 7.1 g/dL (6.4-8.2)
[2022-07-01] MEDS ORDERED: TRELEGY ELLIPT1 EACH IH (18:16)
[2022-07-01] MEDS ORDERED: Cipro500 MG PO (18:17)
[2022-07-01 18:25] LABS: Magnesium, Blood 1.9 mg/dL (1.6-2.4); Thyroid Stimulating Hormone 6.543 uIU/mL (0.360-4.800)
[2022-07-01 20:10] LABS: Anti-Xa UFH, PHA Monitoring <0.10 IU/mL; International Normalized Ratio 1.14; Prothrombin Time Results 11.9 Sec (9.7-11.5)
[2022-07-01 22:09] LABS: Free Thyroxine 1.05 ng/dL (0.70-1.60); Percent Saturation 35.7 % (15.0-50.0)
[2022-07-01 23:10] LABS: Source, Urine Clean Catch
[2022-07-01 23:23] LABS: Appearance, Urine Clear (Clear); Bilirubin, Urine Neg (Neg); Blood, Urine Neg (Neg); Color, Urine Yellow (P-Yellow); Glucose Qualitative, Urine Neg (Neg); Ketones, Urine 2+ (Neg); Leukocyte Esterase, Urine Neg (Neg); Nitrite, Urine Neg (Neg); Protein, Urine Neg (Neg); Urobilinogen, Urine NORM (Normal)
--- NOTE | 2022-07-02 05:01 | NUR ---
SHIFT SUMMARY: Pt arrived to unit at 2114, complaining of neck and chest pain, as well as nausea. Frequent dry heaving but no vomiting. Dyspnea and wheezing noted with exertion. Heparin running at 18ml/kg/hr, double verified with Analilia JEFFRIES. Patient in Afib vs NSR at times. Called MD for orders for nausea and pain due to NPO status. Compazine and fentanyl given IV. Pain and nausea resolved and she was able to sleep for most of the night comfortably. She occasionally complains of anxiety and restless legs, but did not require any more PRNs. BP on the soft side, MAPs in the 60s. HR mostly in the 90s with occasional episodes of RVR up to the 120s or 130s with activity.
--- NOTE | 2022-07-02 08:12 | NUR ---
ASSUMED CARE REPORT FROM JOHN JEFFRIES AT 0700. PT RESTING IN BED. A&OX 3. FOLLOWS COMMANDS. PT MENOMINEE, SOFT VOICE. C/O PAIN TO LEGS AND BACK. REPOSITIONED TOLERATED. SPEAKING IN FULL SENTENCES. LUNGS DIM THROUGHOUT. PT MANAGING SECRETIONS c YANKAUER. C/O SOB c EXERTION. 3L VIA NC, O2 SATS >95%. AFIB ON MONITOR, RATE 80-130'S. BP STABLE. ABLE TO TAKE MEDS c APPLESAUCE. WILL KEEP NPO PENDING IR EVALUATION. CONSULT IN COMPUTER. HEPARIN GTT AT 18 UNITS/KG/HR. PUREWICK IN PLACE. WILL CONTINUE TO MONITOR.
--- NOTE | 2022-07-02 11:53 | NUR ---
"Spiritual Care | Pt. request Pt. is resting in bed but welcomes my visit. Pt is very pleasant but displays eveidence of a week voice. Pt. welcomed my attempts to help her by asking Y/N questions that she could respond with a nod. Over time the Pt. did continue to communicate verbally. Facilitated a life review and considered matters of selina and belief. Pt. displays a confidant hope in spite of her current hospitalization. Prayed with Pt. Pt. verbalized gratitude for the spiritual care visit. Will remain available to Pt."
[2022-07-02 16:49] LABS: Hematocrit 27.4 % (33.0-51.0); Mean Corpuscular HGB 33.6 pg (26.0-34.0); Mean Corpuscular HGB Conc 32.8 g/dL (31.5-36.5); Mean Corpuscular Volume 102 fL (80-100); Mean Platelet Volume 11.8 fL (9.1-12.4); Platelet Count 51 K/mm3 (150-400); RDW Coefficient Variation 14.1 % (11.7-14.2); RDW Standard Deviation 52.1 fL (35.1-46.3); Red Blood Cell Count 2.68 M/mm3 (3.80-5.20); White Blood Cell Count 3.23 K/mm3 (4.00-11.30)
[2022-07-02 17:06] LABS: Albumin, Blood 2.6 g/dL (3.4-5.0); Anion Gap 4 mmol/L (6-16); Blood Urea Nitrogen 10 mg/dL (8-24); Bun/Creatinine Ratio 14.3 (12.0-20.0); CO2, Blood 31 mmol/L (21-32); Calcium, Blood 8.5 mg/dL (8.5-10.1); Chloride, Blood 102 mmol/L (98-108); Glomerular Filtration Rate 84 (60-); Glucose, Blood 135 mg/dL (70-99); Phosphorus, Blood 2.1 mg/dL (2.5-4.9); Potassium, Blood 3.3 mmol/L (3.5-5.5); Sodium, Blood 137 mmol/L (136-145)
[2022-07-02 17:09] LABS: BASOPHILS PERCENT MAN 0 % (0-2); EOSINOPHILS PERCENT MAN 0 % (0-6); LYMPHOCYTES ABSOLUTE MAN 0.22 K/mm3 (0.84-5.20); LYMPHOCYTES PERCENT MAN 7 % (21-46); MONOCYTES PERCENT MAN 0 % (4-13); SEG NEUTROPHILS PERCENT MAN 93 % (41-73); TOTAL CELLS COUNTED 100
--- NOTE | 2022-07-02 17:40 | NUR ---
SHIFT SUMMARY NO ACUTE CHANGES THIS SHIFT. PT REMAINS ON 3L VIA NC, O2 SATSS >96%. LUNGS DIM, MANAGES SECRETIONS c YANKAAUR. PT TACHYPENIC AND LABORED RESP WHEN SPEAKING OR WHEN STAFF/FAMILY IN ROOM. APPEARS TO REST WHEN UNDISTURBED. WHEN PT AWAKE, C/O PAIN TO LEFT SHOULDER AND NECK, SLEEPING CURRENTLY. SARAH ALAN FROM IR CONSULTED, NO INTERVENTIONS NEEDED. PLAN TO TRANSTION TO ORAL ANTICOAGS. CARDIAC DIET ORDERED. PT TOLERATING CLEAR LIQUIDS AT THIS TIME. PUREWICK IN PLACE. STATUS CHANGED TO PCU. WILL CONTINUE TO MONITOR UNTIL REPORT TO ONCOMING NURSE.
--- NOTE | 2022-07-02 21:03 | NUR ---
ASSUMED CARE: 1999- Patient is comfortably resting in bed, states pain level is acceptable. Ate about 25% of dinner, no nausea. Monitor shows sinus rhythm in the 90s. Vitals stable. 2044- Complaining of heartburn after taking PO meds. Contacted MD for Tums order. Pt is now in A-flutter/ A-fib with rates in the 100-120 range.
[2022-07-03 04:08] LABS: Hematocrit 25.9 % (33.0-51.0); Hemoglobin 8.4 g/dL (11.5-16.0); Mean Corpuscular HGB 33.1 pg (26.0-34.0); Mean Corpuscular HGB Conc 32.4 g/dL (31.5-36.5); Mean Corpuscular Volume 102 fL (80-100); RDW Coefficient Variation 14.3 % (11.7-14.2); RDW Standard Deviation 52.6 fL (35.1-46.3); Red Blood Cell Count 2.54 M/mm3 (3.80-5.20)
[2022-07-03 04:26] LABS: Albumin, Blood 2.4 g/dL (3.4-5.0); Anion Gap 4 mmol/L (6-16); Blood Urea Nitrogen 10 mg/dL (8-24); Bun/Creatinine Ratio 16.1 (12.0-20.0); CO2, Blood 29 mmol/L (21-32); Calcium, Blood 8.5 mg/dL (8.5-10.1); Chloride, Blood 106 mmol/L (98-108); Creatinine, Blood 0.62 mg/dL (0.40-1.00); Glomerular Filtration Rate 86 (60-); Glucose, Blood 119 mg/dL (70-99); Phosphorus, Blood 2.4 mg/dL (2.5-4.9); Sodium, Blood 139 mmol/L (136-145)
[2022-07-03 04:46] LABS: Platelet Count 47 K/mm3 (150-400)
[2022-07-03 05:05] LABS: BAND PERCENT MAN 1 % (0-8); BASOPHILS PERCENT MAN 0 % (0-2); EOSINOPHILS ABSOLUTE MAN 0.05 K/mm3 (0.00-0.68); EOSINOPHILS PERCENT MAN 3 % (0-6); LYMPHOCYTES PERCENT MAN 6 % (21-46); MONOCYTES PERCENT MAN 0 % (4-13); NEUTROPHILS ABSOLUTE MAN 1.63 K/mm3 (1.96-9.15); SEG NEUTROPHILS PERCENT MAN 90 % (41-73); TOTAL CELLS COUNTED 100
--- NOTE | 2022-07-03 06:14 | NUR ---
SHIFT SUMMARY: Pt had a fairly uneventful night. Complains of left shoulder/neck/chest pain which is well controlled with [place]. Dyspnea has improved from yesterday. Heart rhythm varies between normal sinus and A-fib/ A-flutter. At 0000, her BP dropped below a MAP of 65 and she was noted to be in A-fib with RVR- rates 120-140. 500ml NS bolus given. Hypotension and Afib RVR resolved. HR now in the 90s and BP 117/63 at 0600.
--- NOTE | 2022-07-03 08:42 | NUR ---
Assumed care. Report recieved from brandon JEFFRIES. Pt sleeping in room at time of report. On via NC at 2 L/min. VS stable, no acute needs a time of report. Continue to monitor.
--- NOTE | 2022-07-03 12:11 | NUR ---
INITIAL PAL CARE VISIT AND F/U VISIT WITH FAMILY AT BEDSIDE. Summary: Call and update received with request for visit this am from pt's bedside RN/hospitalist due to pt's indication that she did not want to proceed with planned procedure/intervention in the heart center later today. Pt admitted with SOB, CP, PE, recurrent DVTs. She is 86, chronically SOB and hypoxic at home but declines to use home O2 per RT. Pt is seen by OP Palliative Care CLERK SPECIALIST through [facility] program. During my visit, pt is having great difficulty clearing secretions and reports pain, exhaustion and anxiety related to unrelieved dyspnea, feeling like she is choking and lengthy coughing spells. She needed minimal assistance with oral suctioning but could not get sputum up to suction many times. Sputum that was raised and suctioned was very thick. Pt appears profoundly exhausted and distressed. After Granddaughters returned to the room, goals of care discussed and pt was adamant that she does not want to proceed with any further interventions or procedures. We discussed options. Pt and granddaughters request start of comfort care and plan for d/c home with hospice if possible. Pt has chronic GI distress/nausea, chronic pain and currently experiencing thick secretions she is unable to fully clear, anxiety, pain, fatigue. Report on all of above called to Dr. Hong to SRAVANI RT and call with report to CLERK SPECIALIST at [facility]. See new orders for comfort care and CC order set, fenesin, protonix bid. Plan f/u visit tomorrow to assess s/s. Granddaughters state multiple family members coming in to visit when able. Comfort care cart ordered also.
--- NOTE | 2022-07-03 12:46 | NUR ---
TRANSFERRED PATIENT TO MEDICAL FLOOR. ALL PERSONAL BELONGING SENT WITH PATIENT. NO ACUTE NEEDS AT TIME OF TRANSFER, VS STABLE.
--- NOTE | 2022-07-03 13:38 | NUR ---
Spiritual Care Visit. Pt. has chosen COmfort care and was recently moved to the Medical floor from the ICU. Pt. is awake in bed and welcomes my visit. Pt. is very pleasant. Two granddaughters are present. Pt. verbalizes that she is at great peace with her decision. Considered matters of selina and belief. Pt. displayed evidence of being fully engaged and aware of her condition. Prayed with Pt. pt. and granddaughters verbalize gratitude for the spiritual care visit. Will remain available to the pt. and family.
--- NOTE | 2022-07-03 14:18 | NUR ---
MD CALL PT AND FAMILY SAID THAT FENTANYL PATCHES ARE DUE TO BE CHANGED NOW. DR DAVIDSON CALLED, SHE GAVE TELEPHONE ORDER TO CHANGE PATCHES NOW. FETANYL PATCH ORDERS D/C'D AND REORDERED IN [facility].
--- NOTE | 2022-07-03 15:22 | NUR ---
SHIFT SUMMARY MS DUMONT IS ALERT, NOT CONFUSED. STRONG FAMILY SUPPORT AT BEDSIDE. TRANSFERED FROM ICU TO MEDICAL UNIT AROUND NOON. PUREWICK IN PLACE THAT SHE WOULD LIKE TO KEEP IN PLACE. SHE INITIALLY DENIED PAIN AND DENIED NEEDING PAIN MEDS, THEN AROUND 2 (SEE MAR) SHE C/O MORE R NECK AND R SHOULDER PAIN. GIVEN 10MG ROXINOL FOR PAIN AND AIR HUNGER AFTER DISCUSSING DOSE WITH PT. THIS WAS FOLLOWED ABOUT 30 MINUTES LATER BY A SECOND 10MG DOSE FOR 8-9/10 SHOULDER/NECK PAIN. HER PAIN IS DOWN TO 4/10 NOW AND SHE IS VISITINIG WITH HER FAMILY AND DECLINES PAIN MEDS. SHE HAS DENIED NAUSEA. SOB ON MINIMAL EXERTION ON 4.5L N/C WHICH SHE TRANSFERED FROM ICU ON. 2 PERIPHERAL PIVS REMOVED PER PT REQUEST. SHE HAS R ARM POWERGLIDE THAT HAS GOOD BLOOD RETURN. GIVEN TUMS FOR ACID INDIGESTION WHICH SHE SAID HELPED, GIVEN ONE DOSE OF ATROPINE SL FOR SECRETIONS WHICH HELPED SOME. WEAK COUGH PRESENT. BED LOW, CALL LIGHT IN REACH.
--- NOTE | 2022-07-03 16:39 | NUR ---
NOTIFY MS JULIA HAS MOUTH SORES. DR DAVIDSON NOTIFIED AND SHE IS PLACING A MEDICATION ORDER IN [facility].
--- NOTE | 2022-07-03 17:21 | NUR ---
Pt placed on comfort care today, with family's support. Pt states she is "in too much pain to go on this way". Marce Mtz came to see patient and family, planning for d/c home with hospice tomorrow. Palliative care to continue to follow.
--- NOTE | 2022-07-04 06:14 | NUR ---
PT VERY PAINFUL AFTER FAMILY LEFT, ROXANOL GIVEN. PT HAD LARGE COUGHING EPISODE WHICH RESULTED IN VOMITING AND INCREASE IN PAIN, PHENERGAN AND ROXANOL GIVEN, PT THEN ABLE TO SLEEP. PT IS SLEEPING AT THIS TIME.
--- NOTE | 2022-07-04 10:00 | NUR ---
Comfort care visit note, case conf with MERVIN Vázquez, SRAVANI and Palliative Care WINDOW MACHINE OPERATOR, Marce, as well as [facility] staff. After team meeting, Comfort Care visit made. Pt is appears markedly better in regard to s/s management. She is smiling, reaching for my hand. No coughing spells or heavy secretion load noted during my visit. Pt's Velia is at bedside and on the phone with other family. Velia in law and a third granddaughter also in the room. Assessment done and pt reports improved pain, GI upset, dyspnea, and anxiety with medications given per eMAR. She dozes off at times while I discuss plans with family and answer their questions. After my visit I reported to CM that s/s well managed currently and pt/family comfortable to going home with hospice support if possible to be arranged today. Met with [facility] RN after my visit to review DME recommended. They had not planned on BSC but I believe pt will need one. Called [facility] to request BSC be added to DME list and WINDOW MACHINE OPERATOR also requested Med Attends, wipes and mouth swabs to be delivered at initial appointment.
[2022-07-04] MEDS ORDERED: ATROPINE SULFATE2 M1 SL (11:05)
[2022-07-04] MEDS ORDERED: GUAI600T33 PO (11:07)
[2022-07-04] MEDS ORDERED: Ativan1 MG PO (11:09)
[2022-07-04] MEDS ORDERED: MORP20L PO (11:10)
[2022-07-04] MEDS ORDERED: TRANSDERM-SCOP1 EA10 TD (11:11)
--- NOTE | 2022-07-04 14:14 | NUR ---
PT DISCHARGED PT AND FAMILY VERBALIZED UNDERSTANDING OF THE DC INSTRUCTIONS. THE PT WAS TRANSFERED VIA GURNEY TO HOME WITH HOSPICE CARE. THE PT WAS MEDICATED FOR PAIN JUST PRIOR TO DISCHARGE. FAMILY WAS AT THE BEDSIDE. PT ON 4L/MIN O2 AT TIME OF DC
== END 2022-07-04 13:32 | disposition hospice, home (50) | DRG 175 ==
LOC: ER 15:18 → ICUW 19:59 → MEDS 07-03 12:12
PROVIDERS: Family Medicine; Pharmacist; Student in an Organized Health Care Education/Training Program; ADMIT Student in an Organized Health Care Education/Training Program
DX: I26.99 Other pulmonary embolism without acute cor pulmonale (principal); J96.01 Acute respiratory failure with hypoxia; I82.403 Acute embolism and thrombosis of unspecified deep veins of lower extremity, bilateral; F11.20 Opioid dependence, uncomplicated; I50.32 Chronic diastolic (congestive) heart failure; D52.9 Folate deficiency anemia, unspecified; D51.9 Vitamin B12 deficiency anemia, unspecified; Z51.5 Encounter for palliative care; Z66 Do not resuscitate; D72.819 Decreased white blood cell count, unspecified; D69.6 Thrombocytopenia, unspecified; E03.9 Hypothyroidism, unspecified; G25.81 Restless legs syndrome; K21.9 Gastro-esophageal reflux disease without esophagitis; E83.39 Other disorders of phosphorus metabolism; J43.9 Emphysema, unspecified; M19.90 Unspecified osteoarthritis, unspecified site; G89.4 Chronic pain syndrome; K75.9 Inflammatory liver disease, unspecified; I48.91 Unspecified atrial fibrillation; D72.0 Genetic anomalies of leukocytes; M62.838 Other muscle spasm; Z88.2 Allergy status to sulfonamides; Z88.0 Allergy status to penicillin; Z88.8 Allergy status to other drugs, medicaments and biological substances; Z90.710 Acquired absence of both cervix and uterus; Z98.890 Other specified postprocedural states; Z87.891 Personal history of nicotine dependence; Z79.899 Other long term (current) drug therapy; Z85.118 Personal history of other malignant neoplasm of bronchus and lung; Z79.82 Long term (current) use of aspirin; Z79.2 Long term (current) use of antibiotics; Z79.01 Long term (current) use of anticoagulants; Z79.52 Long term (current) use of systemic steroids; Z79.51 Long term (current) use of inhaled steroids
CPT/HCPCS: 36415; 71045; 71260; 80053; 80069; 81003; 82607; 82728; 82746; 83540; 83550; 83690; 83735; 83880; 84145; 84439; 84443; 84481; 84484; 85025; 85379; 85520; 85610; 85730; 93005; 93010; 93306; 93970; 94640; 94664; 94760; 94762; 96361; 96374-59; 96375-59; 96376-59; 99285-25; A9270; C1751; J0780; J1644; J2405; J3010; J7030; J7040; Q9967